=== PATIENT | female | born 1970 | race Two or more races ===

== ENCOUNTER 2021-12-06 08:21 | Outpatient (REF) | payer BC, SELFPAY ==
[2021-12-06 10:32] LABS: MANUAL DIFF FLAG NO
[2021-12-06 10:45] LABS: Basophils Absolute Auto 0.1 X10*3/uL (0.0-0.2); Basophils Percent Auto 0.8 % (0-2); Eosinophils Absolute Auto 0.4 X10*3/uL (0.0-0.4); Eosinophils Percent Auto 4.5 % (0-4); Hematocrit 38.7 % (37.0-47.0); Hemoglobin 12.1 g/dl (12.0-16.0); Imm Gran Abs Auto 0.01 X10*3/uL (0.00-0.03); Imm Gran Pct Auto 0.1 % (0.0-0.4); Lymphocytes Absolute Auto 2.4 X10*3/uL (1.2-4.9); Mean Corpuscular HGB Conc 31.3 g/dl (31.0-35.0); Mean Corpuscular Hemoglobin 26.8 pg (27.0-33.0); Mean Corpuscular Volume 85.8 fL (80.0-98.0); Mean Platelet Volume 11.8 fL (9.4-12.3); Monocytes Absolute Auto 0.6 X10*3/uL (0.1-1.2); Monocytes Percent Auto 7.2 % (2-11); Neutrophils Absolute Auto 4.4 x10*3/uL (2.0-8.3); Neutrophils Percent Auto 56.4 % (45-73); Platelet Count 262 X10*3/uL (160-400); Red Blood Count 4.51 X10*6/uL (4.20-5.50); Red Cell Distribution Width 13.1 % (11.0-16.0); White Blood Count 7.7 X10*3/uL (4.8-10.8)
[2021-12-06 10:52] LABS: Alanine Aminotransferase 15 U/L (0-31); Albumin Level 4.1 g/dL (3.5-5.0); Alkaline Phosphatase 88 U/L (39-117); Anion Gap 11 (12-20); Aspartate Amino Transferase 16 U/L (5-31); Bilirubin Total 0.4 mg/dL (0.0-1.0); Blood Urea Nitrogen 10 mg/dL (9-16); Carbon Dioxide 25 mmol/L (22-29); Chloride 107 mmol/L (96-108); Cholesterol 162 mg/dL; Estimated Glomerular Filt Rate > 60; Glucose Fasting 91 mg/dL (60-99); HDL Cholesterol 55 mg/dL; LDL Cholesterol Calculated 92 mg/dl; Potassium 4.7 mmol/L (3.3-5.1); Sodium 138 mmol/L (135-145); Total Protein 6.7 g/dL (6.5-8.0); Triglycerides 77 mg/dL
[2021-12-06 11:14] LABS: Thyroid Stimulating Hormone 4.23 uIU/mL (0.32-4.0)
[2021-12-06 11:56] LABS: Vitamin B12 < 146 pg/mL (200-900)
== END 2021-12-06 08:22 | disposition home or self-care (01) ==
LOC: HO.10HDL 08:21
PROVIDERS: Visit Provider Internal Medicine
DX: Z00.00 Encounter for general adult medical examination without abnormal findings (principal); E03.8 Other specified hypothyroidism; R51.9 Headache, unspecified; M22.2X2 Patellofemoral disorders, left knee; Z13.31 Encounter for screening for depression
CPT/HCPCS: 36415; 80053; 80061; 82607; 84443; 85025

== ENCOUNTER 2023-04-10 08:00 | Outpatient (REF) | payer BC, SELFPAY ==
[2023-04-10 11:14] LABS: Thyroid Stimulating Hormone 4.79 uIU/mL (0.32-4.0)
[2023-04-10 11:22] LABS: Vitamin B12 184 pg/mL (200-900)
[2023-04-13 22:03] LABS: Intrinsic Factor Antibodies Negative (Negative); Parietal Cell Antibody <=20.0 Unit (<=20.0)
== END 2023-04-10 08:01 | disposition home or self-care (01) ==
LOC: HO.10HDL 08:00
PROVIDERS: Visit Provider Internal Medicine
DX: D51.9 Vitamin B12 deficiency anemia, unspecified (principal); E03.8 Other specified hypothyroidism
CPT/HCPCS: 36415; 82607; 83516; 84443; 86340

== ENCOUNTER 2024-04-19 10:42 | Day surgery (SDC) | payer BC, SELFPAY ==
--- NOTE | 2024-04-18 10:15 | HO.ANESPROP2 ---
Documented by User: Cat Soria NP 04/18/24 10:15 HPI - Anesthesia Eval Consult details Narrative: 54yo F for Colonoscopy FORMERLY [facility], [facility] Past Medical History Medical History (Reviewed 04/19/24 @ 11: by Eugenia Turner MD) Hypothyroid Surgical History Surgical History (Reviewed 04/19/24 @ 11: by Eugenia Turner MD) Hx laparoscopic cholecystectomy Social History Social History (Reviewed 04/19/24 @ 11: by Eugenia Turner MD) Patient Tobacco Use Status: Never used Tobacco Have you been hit, kicked, punched, or otherwise hurt by someone within the past year? If so, by whom?: No Are you DNR?: No Advance Directives: No Advance Directives Information Provided: Yes Meds Allergies Allergy/AdvReac Type Severity Reaction Status Date / Time No Known Allergies Allergy Verified 04/07/22 09:48 Home Medications ?Medication ?Instructions ?Recorded ?Confirmed ?Last Taken ?Type levothyroxine 125 mcg tablet 125 mcg PO DAILY 04/07/22 04/19/24 04/19/24 History Assessment and Plan Assessment Anesthesia Assessment: Chart Reviewed Documented by User: Eugenia Turner MD 04/19/24 11:30 FOR[facility]LY [facility], [facility] Past Medical History Medical History (Reviewed 04/19/24 @ 11: by Eugenia Turner MD) Hypothyroid Family History Family history of problems with anesthesia: No Surgical History Surgical History (Reviewed 04/19/24 @ 11: by Eugenia Turner MD) Hx laparoscopic cholecystectomy History of Problems with Anesthesia: No Social History Social History (Reviewed 04/19/24 @ 11: by Eugenia Turner MD) Patient Tobacco Use Status: Never used Tobacco Have you been hit, kicked, punched, or otherwise hurt by someone within the past year? If so, by whom?: No Are you DNR?: No Advance Directives: No Advance Directives Information Provided: Yes Meds Allergies Allergy/AdvReac Type Severity Reaction Status Date / Time No Known Allergies Allergy Verified 04/07/22 09:48 Home Medications ?Medication ?Instructions ?Recorded ?Confirmed ?Last Taken ?Type levothyroxine 125 mcg tablet 125 mcg PO DAILY 04/07/22 04/19/24 04/19/24 History Exam Height,Weight and Vital Signs: Height 5 ft 2 in Weight 72.575 kg Vital Signs Temp Pulse Resp BP Pulse Ox O2 Del Method 04/19/24 10:45 98.7 F 78 18 139/87 98 Room Air Airway Mallampati Class: III TM Dist: >3cm Neck ROM: Full Loose/Missing/Broken Teeth: Yes (Molars extracted. Denies broken or loose teeth) Heart: RRR Lungs: CTAB Assessment and Plan Assessment Anesthesia Assessment: Anesthesia Plan Discussed and Chart Reviewed Final Anesthetic Review Family History of Problems with Anesthesia: No History of Problems with Anesthesia: No NPO: Yes ASA Class: II Final Preanesthetic Review: No Changes in Pt Med Stat, Meds/Allgs Chart Reviewed, Consent Obtained/Reviewed and Anes Risks/Benef Reviewed Patient Risk: Low Procedure Risk: Low Assessment/Block/Sedation in SS: Assess/Block/Sedation-SS Anesthetic Plan Anesthetic Plan: TIVA Disposition: Standard PACU
[2024-04-18 12:09] VITALS: BMI 29.3
[2024-04-19 10:45] VITALS: BP 139/87; PULSE 78; RESP 18; TEMP 37.1; O2SAT 98
--- NOTE | 2024-04-19 10:52 | MHC.SHP ---
Pre-Procedural Eval Section A - 24 Hr Update-Section A only Date of Service: 04/19/24 The patient is an INPATIENT: Yes Changes since office visit: No Cold of Flu in the past 2 weeks, No New Medical Problems, No Changes in Medication and No Patient answered all questions The patient has been examined within 24 hours of the surgical procedure. The History & Physical has been completed within 30 days and I have reviewed it.: Yes Section B - Complete if H&P > 30 days Chief Complaint: screening Relevant Family History (Specify if Yes): No Allergies: Allergies Allergy/AdvReac Type Severity Reaction Status Date / Time No Known Allergies Allergy Verified 04/07/22 09:48 Plan I have reviewed the history and physical and performed a pertinent physical examination on my patient. No changes have occurred unless specified. Time Spent With Patient Time: Total time managing care of this patient today ____ minutes.
[2024-04-19] MEDS: Lactated Ringers 1,000 ML 100 ML IVCONT (11:09)
[2024-04-19 12:06] VITALS: BP 97/57; PULSE 71; RESP 24; TEMP 36.6; O2SAT 98
[2024-04-19 12:21] VITALS: BP 113/59; PULSE 64; RESP 16; TEMP 36.6; O2SAT 98
--- NOTE | 2024-04-19 12:25 | OP_ITS ---
DATE OF SERVICE: 04/19/2024 SURGEON: Darin Edmonds MD INDICATIONS: Colon cancer screening. PREOPERATIVE DIAGNOSIS: POSTOPERATIVE DIAGNOSIS: PROCEDURE PERFORMED: Colonoscopy to the terminal ileum. ESTIMATED BLOOD LOSS: COMPLICATIONS: ANESTHESIA: Monitored anesthesia care. ASSISTANTS: SPECIMENS: DESCRIPTION OF PROCEDURE: History and physical performed, the risks and benefits of the procedure were explained to the patient. Informed consent was obtained. The patient was placed in the left lateral decubitus position. A digital rectal exam was performed and was found to be normal. The Olympus pediatric video colonoscope was introduced into the rectum and advanced to the cecum. The cecum was identified by transillumination, palpation, and identification of ileocecal valve. Examination was performed. The scope was removed. She tolerated the procedure well, returned to recovery area in stable condition. FINDINGS: The terminal ileum was examined and appeared normal. The visualized colonic mucosa was normal. The quality of the prep was good. At 70 cm was a less than 5 mm sessile polyp that was removed with a biopsy forceps. Retroflexed examination showed small internal hemorrhoids and some hypertrophic anal papillae. IMPRESSION: Colon polyp RECOMMENDATIONS: 1. Follow up as needed. 2. Repeat colonoscopy is recommended in 7 years if the polyp is an adenoma.. MD PAULINE Mckeon/CHRIS / [id number] MTDD
== END 2024-04-19 12:50 | disposition home or self-care (01) ==
PROVIDERS: PCP Internal Medicine; Visit Provider Internal Medicine Gastroenterology
PROC: 0DJD8ZZ Inspection of Lower Intestinal Tract, Via Natural or Artificial Opening Endoscopic (ICD-10-PCS; CPT 45378; principal; 2024-04-19 12:00)
DX: Z12.11 Encounter for screening for malignant neoplasm of colon (principal); D12.4 Benign neoplasm of descending colon; K64.8 Other hemorrhoids; K62.89 Other specified diseases of anus and rectum; E03.9 Hypothyroidism, unspecified; Z79.899 Other long term (current) drug therapy; Z90.49 Acquired absence of other specified parts of digestive tract
CPT/HCPCS: 45380; 88305

== ENCOUNTER 2024-05-24 12:56 | Outpatient (REF) | payer BC, SELFPAY ==
--- OUTSIDE RECORDS SUMMARY | 2024-05-24 12:59 | XMS_ITS ---
Author Organization [facility] Address [address] [place] [phone] Care Team Providers Care Dock Grader Name Role Phone Lia Curran Primary Care Provider Unavailab Darin Miramontes Jr REASON FOR VISIT pathology Encounters Encounter Location Date Provider Diagnosis [facility] [address] [place] [phone] 04/24/2024 Darin Edmonds Jr PLAN OF TREATMENT No Information
--- OUTSIDE RECORDS SUMMARY | 2024-05-24 12:59 | XMS_ITS | Patient Health Record ---
Author Organization [facility] Address [address] [place] [address] Care Team Providers Care Business Lawyer Name Role Phone Bina Lia Primary Care Provider Unavailab Darin Miramontes Jr Unavailable Edu Faria Unavailable [phone] ALLERGIES No Known Allergies RESULTS Component Value Reference Range Notes Pathology Reviewed date:04/24/2024 08:39:15 AM Interpretation: Performing Lab:[facility], [address] [place] [phone] Notes/Report: REASON FOR REFERRAL No Information MEDICATIONS Medication SIG (Take, Route, Frequency, Duration) Notes Start Date End Date Status Levothyroxine Sodium 137 MCG 1 tablet in the morning on an empty stomach Orally Once a day Active IMMUNIZATIONS Vaccine Route Administration Date Status Comme nts Influenza Unknown 03/17/2021 Administered SOCIAL HISTORY Tobacco Use: Social History Observation Description Date Details (start date - stop date) Never Smoker NA - NA Sex Assigned At : Social History Observation Description Sex Assigned At Unknown Tobacco Use/Smoking Question Answer Notes Patient is a nonsmoker Alcohol Screen Question Answer Notes Did you have a drink contain ing alcohol in the past year? Yes How often did you have a dri nk containing alcohol in the past year? Monthly or less (1 point) How many drinks did you have on a typical day when you were drinking in the past year? 1 or 2 drinks (0 point) How often did you have 6 or more drinks on one occasion in the past year? Never (0 point) Points 1 Interpretation Negative PROBLEMS Problem Type ICD Code Onset Dates Problem Status W/U Status Risk SNOMED Code Notes Problem Colon cancer screening (Z12.11) Active confirmed 793288321 Problem Encounter for other preprocedural examination (Z01.818) Active confirmed 174675275 VITAL SIGNS Blood pressure diastolic 00 mm Hg 04/04/2024 Height 62 in 04/04/2024 Blood pressure systolic 00 mm Hg 04/04/2024 Weight 160 lbs 04/04/2024 BMI 29.26 kg/m2 04/04/2024 Encounters Encounter Location Date Provider Diagnosis [facility] [address] [place] [phone] 04/19/2024 Darin Edmonds Jr Colon cancer screening Z12.11 and Colon polyps K63.5 [facility] [address] [place] [phone] 05/16/2024 aDrin Edmonds Jr [facility] [address] [place] [phone] 04/29/2024 Darin Edmonds Jr [facility] [address] [place] [phone] 04/04/2024 Darin Edmonds Jr Colon cancer screening Z12.11 and Encounter for other preprocedural examination Z01.818 [facility] [address] [place] [phone] 02/21/2024 Darin Edmonds Jr [facility] [address] [place] [phone] 02/23/2024 Edu Faria [facility] [address] [place] [phone] 04/24/2024 Darin Edmonds Jr ASSESSMENTS Encounter Date Diagnosis Assessment Notes Treatment Notes Treatment Clinical Notes 04/19/2024 Colon cancer screening (ICD-10 - Z12.11) 04/19/2024 Colon polyps (ICD-10 - K63.5) 04/04/2024 Colon cancer screening (ICD-10 - Z12.11) Colonoscopy material was printed 04/04/2024 Encounter for other preprocedural examination (ICD-10 - Z01.818) PLAN OF TREATMENT Future Test Test Name Order Date COLONOSCOPY 03/23/2022 COLONOSCOPY 04/04/2024 Insurance Providers Payer Name Payer Address Payer Phone Subscriber Number Group Number Insured Name Patient Relationship to Insured Coverage Start Date Coverage End Date [facility] [address] [place] [address] [id number] CHON HERNANDEZ Self - patient is the insured MEDICAL (GENERAL) HISTORY Medical History History ICD Code Hypothyroidism Surgical History Surgery Date(Month/Year) Laparoscopic cholecystectomy
--- OUTSIDE RECORDS SUMMARY | 2024-05-24 12:59 | XMS_ITS ---
Author Organization [facility] Address [address] [place] [phone] Care Team Providers Care Proof Reader Name Role Phone Lia Curran Primary Care Provider Unavailab Darin Miramontes Jr [phone] REASON FOR VISIT colon screening Encounters Encounter Location Date Provider Diagnosis [facility] [address] [place] [phone] 04/29/2024 Darin Edmonds Jr PLAN OF TREATMENT No Information
--- OUTSIDE RECORDS SUMMARY | 2024-05-24 12:59 | XMS_ITS ---
Author Organization [facility] Address [address] [place] [phone] Care Team Providers Care Assembler Tractor Name Role Phone Lia Curran Primary Care Provider Unavailab Darin Miramontes Jr REASON FOR VISIT re- discuss colonoscopy Encounters Encounter Location Date Provider Diagnosis [facility] [address] [place] [phone] 05/16/2024 Darin Edmonds Jr PLAN OF TREATMENT No Information
== END 2024-05-24 12:57 | disposition home or self-care (01) ==
LOC: HO.MAMMO 12:56
PROVIDERS: PCP Internal Medicine; Visit Provider Internal Medicine
DX: Z12.31 Encounter for screening mammogram for malignant neoplasm of breast (principal)
CPT/HCPCS: 77063; 77067

== ENCOUNTER → 2024-05-24 13:15 | Outpatient (BNV) | payer BC, SELFPAY | PROVIDERS: PCP Internal Medicine; Visit Provider Internal Medicine | DX: Z12.31 Encounter for screening mammogram for malignant neoplasm of breast (principal) | CPT/HCPCS: 77063; 77067 ==